=== PATIENT | female | born 1960 | race African-American/Black ===

== ENCOUNTER 2016-11-23 10:58 | Day surgery (SDC) | payer OTHER ==
[~2016-11-23] VITALS: Ht 154.9 cm; Wt 93.4 kg
[~2016-11-23 10:58] MED LIST: ADVIL,NUPRIN,M200 MG PO; ASPIR-LOW81 MG PO; ATARAX,VISTARIL25 MG PO; BUSPAR10 MG PO; DOCUSATE SODIU100 MG PO; ENDOCET 5-3251 EACH PO; HUMALOG100 UNIT/2 SC; IBUPROFEN600 MG PO; LANTUS 3 M100 UNITS1 SC; LOVASTATIN10 MG PO; MOBIC15 MG PO; MOTRIN400 MG PO; MULTIPLE VITAM1 EACH PO; NEURONTIN100 MG PO; PERCOCET 5/31 TABLET PO; PROAIR HFA8.5 GM IH; PROVERA,CYCRIN5 MG PO; ZESTRIL10 MG PO
[2016-11-23 11:53] LABS: POINT-OF-CARE METER ID UU14174212
== END 2016-11-23 13:10 | disposition home or self-care (01) ==
LOC: PAIN 10:58 → SDC 11:30 → PAIN 11:30
PROVIDERS: Anesthesiology Pain Medicine
PROC: 3E0S33Z Introduction of Anti-inflammatory into Epidural Space, Percutaneous Approach (ICD-10-PCS; principal; 2016-11-23)
DX: M54.16 Radiculopathy, lumbar region (principal); F41.9 Anxiety disorder, unspecified; Z87.891 Personal history of nicotine dependence; M51.26 Other intervertebral disc displacement, lumbar region; M51.36 Other intervertebral disc degeneration, lumbar region; M48.06 Spinal stenosis, lumbar region; F32.9 Major depressive disorder, single episode, unspecified; Z82.3 Family history of stroke; E11.9 Type 2 diabetes mellitus without complications; Z79.4 Long term (current) use of insulin; J45.909 Unspecified asthma, uncomplicated; I10 Essential (primary) hypertension; E66.9 Obesity, unspecified
CPT/HCPCS: 82948; J1100; J2250; J3010

== ENCOUNTER 2017-07-09 09:07 | Day surgery (SDC) | payer OTHER ==
[~2017-07-09] VITALS: Ht 154.9 cm; Wt 100.2 kg
[~2017-07-09 09:07] MED LIST changes: +ENDOCET 7.5-321 EACH PO; -MOBIC15 MG PO; +MOBIC7.5 MG PO
[2017-07-09 10:21] LABS: POINT-OF-CARE METER ID UU14174212
[2017-07-12] MEDS ORDERED: FLEXERIL5 MG PO (15:25)
[2017-07-12] MEDS ORDERED: OMEPRAZOLE40 M1 PO (15:35)
== END 2017-07-09 11:05 | disposition home or self-care (01) ==
LOC: PAIN 09:07 → SDC 09:30 → PAIN 09:30
PROVIDERS: Anesthesiology Pain Medicine
DX: M47.26 Other spondylosis with radiculopathy, lumbar region (principal); M51.16 Intervertebral disc disorders with radiculopathy, lumbar region; M48.061 Spinal stenosis, lumbar region without neurogenic claudication; I10 Essential (primary) hypertension; E11.9 Type 2 diabetes mellitus without complications; F41.8 Other specified anxiety disorders; J45.909 Unspecified asthma, uncomplicated; Z86.73 Personal history of transient ischemic attack (TIA), and cerebral infarction without residual deficits; Z79.4 Long term (current) use of insulin; Z79.891 Long term (current) use of opiate analgesic; E78.00 Pure hypercholesterolemia, unspecified; E66.9 Obesity, unspecified; Z68.41 Body mass index [BMI] 40.0-44.9, adult; Z87.891 Personal history of nicotine dependence
CPT/HCPCS: 82948; J1030; J2250; J3010; S0020

== ENCOUNTER 2017-07-16 08:53 | Day surgery (SDC) | payer OTHER ==
[~2017-07-16] VITALS: Ht 154.9 cm; Wt 93.4 kg
[~2017-07-16 08:53] MED LIST changes: +FLEXERIL5 MG PO; +OMEPRAZOLE40 M1 PO
[2017-07-16 09:17] LABS: POINT-OF-CARE METER ID UU14174212
== END 2017-07-16 10:25 | disposition home or self-care (01) ==
LOC: PAIN 08:53
PROVIDERS: Anesthesiology Pain Medicine
DX: M47.26 Other spondylosis with radiculopathy, lumbar region (principal); M51.16 Intervertebral disc disorders with radiculopathy, lumbar region; M48.061 Spinal stenosis, lumbar region without neurogenic claudication; I10 Essential (primary) hypertension; M79.1 Myalgia; J45.909 Unspecified asthma, uncomplicated; E11.9 Type 2 diabetes mellitus without complications; Z86.73 Personal history of transient ischemic attack (TIA), and cerebral infarction without residual deficits; Z79.4 Long term (current) use of insulin; Z79.891 Long term (current) use of opiate analgesic
CPT/HCPCS: 82948; J1030; J2250; J3010; S0020